=== PATIENT | female | born 1950 ===

== ENCOUNTER → 2024-11-08 10:26 | Outpatient (REF) | payer MEDICARE, SELFPAY | LOC: PAVMRI 10:26 | PROVIDERS: ATTENDING PHYSICIAN Psychiatry & Neurology Neurology; FAMILY PHYSICIAN Family Medicine | DX: M96.1 Postlaminectomy syndrome, not elsewhere classified (principal); G24.3 Spasmodic torticollis | CPT/HCPCS: 72141 ==